=== PATIENT | female | born 1940 | race Hispanic/Latino ===

== ENCOUNTER 2018-03-19 10:12 | Observation (INO) | payer BC ==
[2018-03-19 10:39] VITALS: BMI 21.2
[2018-03-19] MEDS ORDERED: Sodium Chloride 0.9% 1,000 ML IV STA (10:45)
--- NOTE | 2018-03-19 10:52 | ED PDOC ---
Arrival/HPI - General Chief Complaint: Back Pain Time Seen by Provider: 03/19/18 10:33 Historian: Patient - History of Present Illness Narrative History of Present Illness (Text): 03/19/18 10:48 This 78 yo female with pmh kidney stones, presents to this ED c/o left flank pain since 1 am this morning. Patient stated pain feels like a kidney stones. Patient feels nauseous. Patient denies sob, cp, diarrhea, fever, vaginal bleeding, vaginal discharge , urinary symptoms, or dizziness. Time/Duration: Other (10 hours) Quality: Aching Context: Home Past Medical History - Provider Review Nursing Documentation Reviewed: Yes - Travel History If Yes, travel location?: [place] - Infectious Disease Hx of Infectious Diseases: None - Tetanus Immunization Tetanus Immunization: Up to Date - Pulmonary Hx Chronic Obstructive Pulmonary Disease (COPD): Yes - Neurological Hx Neurological Disorder: No - HEENT Hx Cataracts: Yes - Renal Hx Renal Disorder: No - Endocrine/Metabolic Hx Endocrine Disorders: No - Hematological/Oncological Hx Blood Disorders: No - Integumentary Hx Dermatological Disorder: No - Gastrointestinal Hx Gastrointestinal Disorders: No - Genitourinary/Gynecological Hx Genitourinary Disorders: No - Psychiatric Hx Psychophysiologic Disorder: No Hx Substance Use: No - Surgical History Other/Comment: WHIPPLE SURGERY 2013 - Anesthesia Hx Anesthesia: Yes Hx Anesthesia Reactions: No Hx Malignant Hyperthermia: No - Suicidal Assessment Feels Threatened In Home Enviroment: No Family/Social History - Physician Review Nursing Documentation Reviewed: Yes Family/Social History: Other (noncontributory) Smoking Status: Former Smoker Hx Alcohol Use: No Hx Substance Use: No Hx Substance Use Treatment: No Allergies/Home Meds Allergies/Adverse Reactions: Allergies TOMATOES Allergy (Uncoded 03/19/18 20:46) RASH Home Medications: Home Meds Medication Instructions Recorded Confirmed Esomeprazole Magnesium [Nexium] 1 mg PO DAILY 04/09/15 03/19/18 Budesonide/Formoterol Fumarate 10.2 gm INH DAILY 03/19/18 03/19/18 [Symbicort 80-4.5 Mcg Inhaler] Review of Systems - Review of Systems Constitutional: Normal. absent: Fatigue, Weight Change, Fevers Eyes: Normal ENT: Normal Respiratory: Normal Cardiovascular: Normal Gastrointestinal: Abdominal Pain (left flank pain), Nausea. absent: Stool Changes, Constipation, Diarrhea, Vomiting Genitourinary Female: Normal. absent: Dysuria, Frequency, Hematuria, Vaginal Bleeding, Vaginal Discharge Musculoskeletal: Normal Skin: Normal Neurological: Normal Endocrine: Normal Hemo/Lymphatic: Normal Psychiatric: Normal Physical Exam Vital Signs Temp Pulse Resp BP Pulse Ox 03/19/18 15:37 89 18 141/75 96 03/19/18 13:26 99 H 18 145/78 95 03/19/18 12:01 86 18 182/86 H 98 03/19/18 10:12 98.1 F 94 H 18 195/95 H 98 Temperature: Afebrile Blood Pressure: Normal Pulse: Regular Respiratory Rate: Normal Appearance: Positive for: Well-Appearing, Non-Toxic, Comfortable Pain Distress: None Mental Status: Positive for: Alert and Oriented X 3 - Systems Exam Head: Present: Atraumatic, Normocephalic Pupils: Present: PERRL Extroacular Muscles: Present: EOMI Conjunctiva: Present: Normal Mouth: Present: Moist Mucous Membranes Neck: Present: Normal Range of Motion Respiratory/Chest: Present: Clear to Auscultation, Good Air Exchange. No: Respiratory Distress, Accessory Muscle Use Cardiovascular: Present: Regular Rate and Rhythm, Normal S1, S2. No: Murmurs Abdomen: Present: Tenderness (left flank tenderness). No: Distention, Peritoneal Signs, Rebound, Guarding Back: Present: Normal Inspection. No: CVA Tenderness Upper Extremity: Present: Normal Inspection. No: Cyanosis, Edema Lower Extremity: Present: Normal Inspection. No: Edema Neurological: Present: GCS=15, CN II-XII Intact, Speech Normal, Motor Func Grossly Intact, Normal Sensory Function, Normal Cerebellar Funct, Gait Normal, Memory Normal Skin: Present: Warm, Dry, Normal Color. No: Rashes Psychiatric: Present: Alert, Oriented x 3, Normal Insight, Normal Concentration Medical Decision Making ED Course and Treatment: 03/19/18 13:24 Patient stated she has an appointment to see Dr. Campuzano in 1-2 days. Patient said pain has improved. 03/19/18 15:[address] Campuzano regarding renal stone, and intractable abdominal pain. He agrees with plan for observation 03/19/18 15:[address] Munguia regarding patient diagnose of renal stone with hydro, and intractable flank pain. Dr. Munguia is aware I had spoken with Dr. Campuzano, who will see patient tomorrow. Dr. Munguia agrees with plan for observation. Re-evaluation Time: 15:03 Reassessment Condition: Re-examined, Improving,but remains with symptoms - Lab Interpretations Microbiology Results: Microbiology Results 03/19/18 14:00 Blood Blood Culture - Preliminary NO GROWTH AFTER 3 DAYS 03/19/18 13:30 Blood Blood Culture - Preliminary NO GROWTH AFTER 3 DAYS 03/19/18 13:26 Urine Urine Culture - Final No Growth (<1,000 CFU/ML) Lab Results: 03/19/18 11:05 03/19/18 11:05 Lab Results 03/19/18 13:26: Urine Color Yellow, Urine Appearance Turbid, Urine pH 7.5, Ur Specific Parker 1.015, Urine Protein Trace H, Urine Glucose (UA) Negative, Urine Ketones 15 H, Urine Blood Large H, Urine Nitrate Negative, Urine Bilirubin Negative, Urine Urobilinogen 0.2, Ur Leukocyte Esterase Negative, Urine RBC 25 - 30, Urine WBC 0 - 2 03/19/18 11:05: Sodium 141, Potassium 4.0, Chloride 104, Carbon Dioxide 23, Anion Gap 18, BUN 19, Creatinine 0.7, Est GFR ( Amer) > 60, Est GFR (Non- Af Amer) > 60, Random Glucose 132 H, Calcium 9.7, Total Bilirubin 1.0, AST 36, ALT 27, Alkaline Phosphatase 140 H, Lactate Dehydrogenase 611, Total Creatine Kinase 51, Troponin I < 0.01, Total Protein 7.6, Albumin 4.8, Globulin 2.8, Albumin/Globulin Ratio 1.7, Lipase 14 L 03/19/18 11:05: WBC 13.2 H, RBC 4.80, Hgb 14.1, Hct 42.5, MCV 88.5, MCH 29.4, MCHC 33.2, RDW 13.2, Plt Count 240, MPV 9.5, Gran % 89.7 H, Lymph % (Auto) 5.1 L , [place] % (Auto) 4.5, Eos % (Auto) 0.5 L, Baso % (Auto) 0.2, Gran # 11.82 H, Lymph # (Auto) 0.7 L, [place] # (Auto) 0.6, Eos # (Auto) 0.1, Baso # (Auto) 0.02 - RAD Interpretation Narrative RAD Interpretations (Text): 03/19/18 13:13 FINDINGS: LOWER THORAX: Unremarkable. LIVER: 2.8 centimeter right hepatic cyst. . No gross lesion or ductal dilatation. GALLBLADDER AND BILE DUCTS: Cholecystectomy. PANCREAS: Unremarkable. No gross lesion or ductal dilatation. SPLEEN: Unremarkable. ADRENALS: Unremarkable. No mass. KIDNEYS AND URETERS: 15 millimeter nonobstructive calculus in the right renal pelvis. 1 centimeter left lower pole nonobstructive renal calculus as well as additional small left upper pole renal calculi. Moderate left hydronephrosis and hydroureter with periureteral fat infiltration. Suspect 5 millimeter obstructive calculus in the distal left ureter (less likely phlebolith). VASCULATURE: Unremarkable. No aortic aneurysm. BOWEL: Left-sided colonic diverticulosis. No obstruction. No gross mural thickening. APPENDIX: Unremarkable. Normal appendix. PERITONEUM: Unremarkable. No free fluid. No free air. LYMPH NODES: Unremarkable. No enlarged lymph nodes. BLADDER: Unremarkable. REPRODUCTIVE: Unremarkable. BONES: No acute fracture. OTHER FINDINGS: None. IMPRESSION: Moderate left hydronephrosis and hydroureter with periureteral fat infiltration. Suspect 5 millimeter obstructive calculus in the distal left ureter (less likely phlebolith). Bilateral nephrolithiasis. 03/19/18 14:37 CXR: NAD Radiology Orders: 03/19/18 10:46 CHEST PORTABLE [RAD] Stat 03/19/18 10:53 ABDOMEN & PELVIS [ABD & PELVIS W/O PO OR IV CONT] [CT] Stat - EKG Interpretation Interpreted by ED Physician: Yes (NSR @ [address] changes) Type: 12 lead EKG Comparison: No previous EKG avail. - Medication Orders Current Medication Orders: Discontinued Medications Albuterol/Ipratropium (Duoneb 3 Mg/0.5 Mg (3 Ml) Ud) 3 ml IH [id number] PRN PRN Reason: Shortness of Breath Docusate Sodium (Colace) 100 mg PO DAILY RICARDO Last Admin: 03/21/18 10:42 Dose: 100 mg Last Bowel Movement Document 03/21/18 10:42 DSZ (Rec: 03/21/18 10:42 DSZ [id number]) Last Bowel Movement Last Bowel Movement 03/19/18 Enoxaparin Sodium (Lovenox) 40 mg SC DAILY RICARDO PRN Reason: Protocol Last Admin: 03/21/18 10:41 Dose: 40 mg Subcutaneous Administrations Document 03/21/18 10:41 DSZ (Rec: 03/21/18 10:41 DSZ [id number]) Injection Site MAR Injection Site Right Abdomen Charges for Administration # of Subcutaneous Administrations 1 Hydromorphone HCl (Dilaudid) 0.5 mg IVP STAT STA Stop: 03/19/18 14:25 Last Admin: 03/19/18 14:37 Dose: 0.5 mg MAR Pain Assessment Document 03/19/18 14:37 LA (Rec: 03/19/18 14:37 LA [id number]) Pain Reassessment Is this a pain reassessment? No Sleep Is patient sleeping during reassessment? No Presence of Pain Presence of Pain Yes Pain Scale Used Pain Scale Used Numeric Location Pain Location Body Site Abdomen Description Intensity of Pain at present 6 Pain Behavior Guarding IVP Administration Document 03/19/18 14:37 LA (Rec: 03/19/18 14:37 LA [id number]) Charges for Administration # of IVP Administrations 1 Re-Assess: MAR Pain Assessment Document 03/19/18 15:37 LA (Rec: 03/19/18 16:55 LA [id number]) Pain Reassessment Is this a pain reassessment? Yes Sleep Is patient sleeping during reassessment? No Presence of Pain Presence of Pain Yes Pain Scale Used Pain Scale Used Numeric Location Pain Location Body Site Abdomen Description Intensity of Pain at present 3 Hydromorphone HCl (Dilaudid) 0.5 mg IVP Q6H PRN PRN Reason: Pain, severe (8-10) Stop: 03/20/18 09:00 Last Admin: 03/19/18 19:59 Dose: 0.5 mg MAR Pain Assessment Document 03/19/18 19:59 MB (Rec: 03/19/18 20:00 MB [id number]) Pain Reassessment Is this a pain reassessment? No Presence of Pain Presence of Pain Yes Pain Scale Used Pain Scale Used Numeric Location Left, Right or Bilateral Right Pain Location Body Site Abdomen Back Description Description Intermittent IVP Administration Document 03/19/18 19:59 MB (Rec: 03/19/18 20:00 MB [id number]) Charges for Administration # of IVP Administrations 1 Re-Assess: MAR Pain Assessment Document 03/19/18 20:59 MB (Rec: 03/20/18 00:32 MB [id number]) Pain Reassessment Is this a pain reassessment? Yes Sleep Is patient sleeping during reassessment? Yes Hydromorphone HCl (Dilaudid) 0.5 mg IVP Q15M PRN PRN Reason: Pain, moderate (4-7) Stop: 03/20/18 16:46 Sodium Chloride (Sodium Chloride 0.9%) 1,000 mls @ 999 mls/hr IV .Q1H1M STA Stop: 03/19/18 11:45 Last Admin: 03/19/18 11:13 Dose: 999 mls/hr eMAR Start Stop Document 03/19/18 11:13 LA (Rec: 03/19/18 11:13 LA [id number]) Intravenous Solution Start Date 03/19/18 Start Time 11:13 End Date 03/19/18 End time 12:14 Total Infusion Time 61 Ceftriaxone Sodium (Rocephin 1 Gram Ivpb) 1 gm in 100 mls @ 200 mls/hr IVPB STAT STA PRN Reason: Protocol Stop: 03/19/18 14:55 Last Admin: 03/19/18 14:37 Dose: 200 mls/hr eMAR Start Stop Document 03/19/18 14:37 LA (Rec: 03/19/18 14:37 LA [id number]) Intravenous Solution Start Date 03/19/18 Start Time 14:37 End Date 03/19/18 End time 15:07 Total Infusion Time 30 Sodium Chloride (Sodium Chloride 0.9%) 1,000 mls @ 75 mls/hr IV .[id number] [facility] Last Admin: 03/20/18 09:28 Dose: 75 mls/hr eMAR Start Stop Document 03/20/18 09:28 OMAR (Rec: 03/20/18 09:28 OMAR [id number]) Intravenous Solution Start Date 03/20/18 Start Time 09:28 Ketorolac Tromethamine (Toradol) 15 mg IVP STAT STA Stop: 03/19/18 10:46 Last Admin: 03/19/18 11:13 Dose: 15 mg MAR Pain Assessment Document 03/19/18 11:13 LA (Rec: 03/19/18 11:14 LA [id number]) Pain Reassessment Is this a pain reassessment? No Sleep Is patient sleeping during reassessment? No Presence of Pain Presence of Pain Yes Pain Scale Used Pain Scale Used Numeric Location Left, Right or Bilateral Left Pain Location Body Site Back Description Description Constant Intensity of Pain at present 8 Pain Behavior Guarding IVP Administration Document 03/19/18 11:13 LA (Rec: 03/19/18 11:14 LA [id number]) Charges for Administration # of IVP Administrations 1 Re-Assess: [facility] Pain Assessment Document 03/19/18 12:13 LA (Rec: 03/19/18 14:38 LA [id number]) Pain Reassessment Is this a pain reassessment? Yes Sleep Is patient sleeping during reassessment? Yes Morphine Sulfate (Morphine) 2 mg IVP Q6H PRN PRN Reason: Pain, severe (8-10) Non-Formulary Medication (Budesonide/Formoterol Fumarate [Symbicort 80-4.5 Mcg Inhaler]) 10.2 gm INH DAILY [facility] Last Admin: 03/21/18 11:49 Dose: Ondansetron HCl (Zofran Inj) 4 mg IVP STAT STA Stop: 03/19/18 10:47 Last Admin: 03/19/18 11:13 Dose: 4 mg IVP Administration Document 03/19/18 11:13 LA (Rec: 03/19/18 11:13 LA [id number]) Charges for Administration # of IVP Administrations 1 Ondansetron HCl (Zofran Inj) 4 mg IVP STAT STA Stop: 03/19/18 14:25 Last Admin: 03/19/18 14:36 Dose: 4 mg IVP Administration Document 03/19/18 14:36 LA (Rec: 03/19/18 14:37 LA [id number]) Charges for Administration # of IVP Administrations 1 Ondansetron HCl (Zofran Inj) 4 mg IVP Q4H PRN PRN Reason: Nausea/Vomiting Ondansetron HCl (Zofran Inj) 4 mg IVP ONCE PRN PRN Reason: Nausea/Vomiting Pantoprazole Sodium (Protonix Inj) 40 mg IVP DAILY [facility] Last Admin: 03/21/18 10:42 Dose: 40 mg IVP Administration Document 03/21/18 10:42 DSZ (Rec: 03/21/18 10:42 DSZ [id number]) Charges for Administration # of IVP Administrations 1 Pneumococcal Polyvalent Vaccine (Pneumovax 23 Vaccine) 0.5 ml IM .ONCE ONE Stop: 03/19/18 22:19 Last Admin: 03/20/18 00:36 Dose: Immunization Registry Document 03/20/18 00:36 MB (Rec: 03/20/18 00:36 MB [id number]) Immunization Registry Consent Date 03/19/18 Potassium Chloride (K-Dur 20 Meq Er Tab) 40 meq PO ONCE ONE Stop: 03/21/18 08:05 Last Admin: 03/21/18 08:36 Dose: 40 meq Tamsulosin HCl (Flomax) 0.4 mg PO STAT STA Stop: 03/19/18 15:03 Last Admin: 03/19/18 16:57 Dose: 0.4 mg Tamsulosin HCl (Flomax) 0.4 mg PO DAILY [facility] Last Admin: 03/19/18 18:34 Dose: Disposition/Present on Arrival - Present on Arrival Any Indicators Present on Arrival: No History of DVT/PE: No History of Uncontrolled Diabetes: No Urinary Catheter: No History of Decub. Ulcer: No History Surgical Site Infection Following: None - Disposition Have Diagnosis and Disposition been Completed?: Yes Diagnosis: Ureterolithiasis, Intractable abdominal pain Disposition: HOSPITALIZED Disposition Time: 15:36 Patient Plan: Observation Condition: GOOD
[2018-03-19 11:17] LABS: BASO # 0.02 K/mm3 (0.0-2.0); BASO % 0.2 % (0.0-3.0); EOS # 0.1 (0.0-0.7); EOS % 0.5 % (1.5-5.0); GRAN # 11.82 (1.4-6.5); GRAN % 89.7 % (50.0-68.0); HEMOGLOBIN 14.1 g/dL (12.0-16.0); LYMPH # 0.7 (1.2-3.4); LYMPH % 5.1 % (22.0-35.0); MEAN CELL VOLUME 88.5 fl (80.0-105.0); MEAN CORPUSCULAR HEMOGLOBIN 29.4 pg (25.0-35.0); MEAN CORPUSCULAR HGB CONC 33.2 g/dl (31.0-37.0); MEAN PLATELET VOLUME 9.5 fl (7.0-11.0); MONO # 0.6 (0.1-0.6); MONO % 4.5 % (1.0-6.0); RBC 4.8 10^6/uL (3.5-6.1); RED CELL DISTRIBUTION WIDTH 13.2 % (11.5-14.5); WHITE BLOOD COUNT 13.2 10^3/ul (4.5-11.0)
[2018-03-19 11:36] LABS: ALB/GLOB RATIO 1.7 (1.1-1.8); ALBUMIN 4.8 g/dL (3.0-4.8); CALCIUM 9.7 mg/dL (8.4-10.5); GFR AFRICAN-AMERICAN > 60; GFR NON-AFRICAN AMERICAN > 60; LIPASE 14 U/L (23-300)
[2018-03-19 11:39] LABS: ALT/SGPT 27 U/L (7-56); AST/SGOT 36 U/L (14-36); BLOOD UREA NITROGEN 19 mg/dL (7-21)
[2018-03-19 11:45] LABS: TROPONIN I < 0.01 ng/mL
--- NOTE | 2018-03-19 11:54 | CT ---
PROCEDURE: CT Abdomen and Pelvis without intravenous contrast HISTORY: left flank pain COMPARISON: 05/05/13. TECHNIQUE: Technique. Contrast dose: Radiation dose: Total exam DLP = 256 mGy-cm. This CT exam was performed using one or more of the following dose reduction techniques: Automated exposure control, adjustment of the mA and/or kV according to patient size, and/or use of iterative reconstruction technique. FINDINGS: LOWER THORAX: Unremarkable. LIVER: 2.8 centimeter right hepatic cyst. . No gross lesion or ductal dilatation. GALLBLADDER AND BILE DUCTS: Cholecystectomy. PANCREAS: Unremarkable. No gross lesion or ductal dilatation. SPLEEN: Unremarkable. ADRENALS: Unremarkable. No mass. KIDNEYS AND URETERS: 15 millimeter nonobstructive calculus in the right renal pelvis. 1 centimeter left lower pole nonobstructive renal calculus as well as additional small left upper pole renal calculi. Moderate left hydronephrosis and hydroureter with periureteral fat infiltration. Suspect 5 millimeter obstructive calculus in the distal left ureter (less likely phlebolith). VASCULATURE: Unremarkable. No aortic aneurysm. BOWEL: Left-sided colonic diverticulosis. No obstruction. No gross mural thickening. APPENDIX: Unremarkable. Normal appendix. PERITONEUM: Unremarkable. No free fluid. No free air. LYMPH NODES: Unremarkable. No enlarged lymph nodes. BLADDER: Unremarkable. REPRODUCTIVE: Unremarkable. BONES: No acute fracture. OTHER FINDINGS: None. IMPRESSION: Moderate left hydronephrosis and hydroureter with periureteral fat infiltration. Suspect 5 millimeter obstructive calculus in the distal left ureter (less likely phlebolith). Bilateral nephrolithiasis.
--- NOTE | 2018-03-19 12:10 | CARD ---
APPROVED REPORT EKG Measurement Heart [id number] <Conclusion> Normal sinus rhythm Low voltage QRS Cannot rule out Anterior infarct, age undetermined Abnormal ECG
--- NOTE | 2018-03-19 12:12 | RAD ---
HISTORY: pleuritic CP COMPARISON: 07/21/2016 FINDINGS: LUNGS: No active pulmonary disease. PLEURA: No significant pleural effusion identified, no pneumothorax apparent. CARDIOVASCULAR: Normal. OSSEOUS STRUCTURES: No significant abnormalities. VISUALIZED UPPER ABDOMEN: Normal. OTHER FINDINGS: None. IMPRESSION: No active disease.
[2018-03-19 13:31] LABS: PH,URINE 7.5 (4.7-8.0); URINE BILIRUBIN NEGATIVE (NEGATIVE); URINE BLOOD LARGE (NEGATIVE); URINE GLUCOSE (UA) NEGATIVE (NEGATIVE); URINE LEUKOCYTE ESTERASE NEGATIVE Leu/uL (NEGATIVE); URINE PROTEIN TRACE mg/dL (<30 mg/dL); URINE UROBILINOGEN 0.2 E.U./dL (<1 E.U./dL)
[2018-03-19 13:37] LABS: URINE APPEARANCE TURBID (CLEAR); URINE COLOR YELLOW (YELLOW)
[2018-03-19 13:52] LABS: URINE RBC 25 - 30 /hpf (0-2); URINE WBC 0 - 2 /hpf (0-6)
[2018-03-19] MEDS ORDERED: HYDROmorphone 0.5 mg/0.5 ml ISec IVP STA (14:24)
[2018-03-19] MEDS ORDERED: cefTRIAXone 1 gm 1 GM/100 ML BAG IVPB STA (14:26)
[2018-03-19] MEDS ORDERED: HYDROmorphone 0.5 mg/0.5 ml ISec IVP PRN (16:57)
[2018-03-19] MEDS ORDERED: Albuterol-Ipratrop 3 mg / 0.5 (3 ml) UD IH PRN (17:46)
[2018-03-19] MEDS ORDERED: Morphine 2 mg/ml ISec IVP PRN (17:49)
--- NOTE | 2018-03-19 21:08 | CP.PCM.HP ---
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 Patient indicated she had been experiencing left sided flank pain for the past week with progression of her symptoms over the past day or two. She indicates that this AM around 1 AM she began to experience vomiting and nausea. She also reported hives and chills. She tried to take Tylenol for her pain without resolution of symptoms. Patient indicated that she was previously worked up for this discomfort with renal ultrasound with her PMD Dr. Knight. Patient was instructed to follow up with Urologist Dr. Campuzano. Patient indicates she had appointment with him next week. Patient also indicated headaches ,dry mouth associated with symbicort. Patient denied chest pain, shortness of breath, abdominal pain, dysuria, hematuria, weakness, numbness, focal deficit. 12 point ROS benign other than mentioned in HPI. In ED patient had abdomen and pelvis CT showing 5 mm obstructive calculi distal left ureter, 15 mm non obstructing calculus right renal pelvis, 10 mm non obstructive calculus left lower pole, small left upper pole renal calculi, moderate left hydronephrosis and hydroureter with periureteral fat infiltration , elevated WBC of 13.2, afebrile. 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 Vogel. Present on Admission - Present on Admission Any Indicators Present on Admission: No Review of Systems - Review of Systems All systems: reviewed and no additional remarkable complaints except (as mentioned in hpi) Past Patient History - Infectious Disease Hx of Infectious Diseases: None - Tetanus Immunizations Tetanus Immunization: Up to Date - Past Social History Smoking Status: Former Smoker - PULMONARY Hx Chronic Obstructive Pulmonary Disease (COPD): Yes - NEUROLOGICAL Hx Neurological Disorder: No - HEENT Hx Cataracts: Yes - RENAL Hx Chronic Kidney Disease: No - ENDOCRINE/METABOLIC Hx Endocrine Disorders: No - HEMATOLOGICAL/ONCOLOGICAL Hx Blood Disorders: No - INTEGUMENTARY Hx Dermatological Problems: No - GASTROINTESTINAL Hx Gastrointestinal Disorders: No - GENITOURINARY/GYNECOLOGICAL Hx Genitourinary Disorders: No - PSYCHIATRIC Hx Psychophysiologic Disorder: No Hx Substance Use: No - SURGICAL HISTORY Other/Comment: WHIPPLE SURGERY 2013 - ANESTHESIA Hx Anesthesia: Yes Hx Anesthesia Reactions: No Hx Malignant Hyperthermia: No Meds Allergies/Adverse Reactions: Allergies Allergy/AdvReac Type Severity Reaction Status Date / Time TOMATOES Allergy RASH Uncoded 03/19/18 20:46 Physical Exam - Constitutional Appears: Non-toxic, Older Than Stated Age, Cachectic - Head Exam Head Exam: ATRAUMATIC, NORMOCEPHALIC Additional comments: temporal bossing, sunken eyes - Eye Exam Eye Exam: EOMI, PERRL - ENT Exam ENT Exam: Mucous Membranes Dry - Neck Exam Neck exam: Positive for: Full Rom. Negative for: Tenderness - Respiratory Exam Respiratory Exam: Clear to Auscultation Bilateral, NORMAL BREATHING PATTERN. absent: Rales, Rhonchi, Wheezes - Cardiovascular Exam Cardiovascular Exam: REGULAR RHYTHM, +S1, +S2 - GI/Abdominal Exam GI & Abdominal Exam: Normal Bowel Sounds, Soft. absent: Tenderness - Extremities Exam Extremities exam: Positive for: normal capillary refill, pedal pulses present. Negative for: calf tenderness - Back Exam Back exam: CVA tenderness (L) - Neurological Exam Neurological exam: Alert, CN II-XII Intact, Normal Gait, Oriented x3, Reflexes Normal - Psychiatric Exam Psychiatric exam: Normal Affect, Normal Mood - Skin Skin Exam: Dry, Warm Results - Vital Signs Recent Vital Signs: Last Vital Signs Temp 98.4 F 03/19/18 17:15 Pulse 86 03/19/18 17:15 Resp 18 03/19/18 17:15 BP 151/86 H 03/19/18 17:15 Pulse Ox 95 03/19/18 17:15 - Labs Result Diagrams: 03/19/18 11:05 03/19/18 11:05 Assessment & Plan - Assessment and Plan (Free Text) Assessment: 1 year old female with past medical history of COPD, previous episode of nephrolithiasis, and 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 Urology consulted. Plan: Nephrolithiasis - Abdomen pelvis CT: 5 mm obstructive calculi distal left ureter, 15 mm non obstructing calculus right renal pelvis, 10 mm non obstructive calculus left lower pole, small left upper pole renal calculi, moderate left hydronephrosis and hydroureter with periureteral fat infiltration - elevated WBC of 13.2, afebrile - rocephin in ED, continue - Diet liquids - IVF 75ml NS - Flomax - Morphine 2mg Q6H PRN - Strain urine - Urology consult - Zofran prn DVT/GI ppx - Lovenox - Protonix Case and plan discussed with attending - Date & Time Date: 03/19/18 Time: 21:08 <Maxwell Munguia - Last Filed: 03/20/18 07:48> Results - Vital Signs Recent Vital Signs: Last Vital Signs Temp 98.4 F 03/19/18 23:22 Pulse 88 03/19/18 23:22 Resp 18 03/19/18 23:22 BP 136/59 L 03/19/18 23:22 Pulse Ox 98 03/19/18 23:22 - Labs Result Diagrams: 03/20/18 07:03 03/20/18 07:03 Labs: Laboratory Results - last 24 hr 03/20/18 03/20/18 07:03 07:03 WBC 9.0 D RBC 4.13 Hgb 12.0 D Hct 37.0 MCV 89.6 MCH 29.1 MCHC 32.4 RDW 13.6 Plt Count 210 MPV 9.5 Gran % 78.4 H Lymph % (Auto) 10.8 L [place] % (Auto) 8.7 H Eos % (Auto) 2.0 Baso % (Auto) 0.1 Gran # 7.03 H Lymph # (Auto) 1.0 L [place] # (Auto) 0.8 H Eos # (Auto) 0.2 Baso # (Auto) 0.01 Sodium 142 Potassium 3.7 Chloride 107 Carbon Dioxide 25 Anion Gap 13 BUN 15 Creatinine 0.7 Est GFR ( Amer) > 60 Est GFR (Non-Af Amer) > 60 Random Glucose 102 Calcium 8.5 Total Bilirubin 0.8 AST 31 ALT 25 Alkaline Phosphatase 101 Total Protein 5.7 L Albumin 3.4 Globulin 2.3 Albumin/Globulin Ratio 1.5 Attending/Attestation - Attestation I have personally seen and examined this patient.: Yes I have fully participated in the care of the patient.: Yes I have reviewed all pertinent clinical information: Yes Notes (Text): 03/19/18 78 year old female with past medical history of COPD, nephrolithias, and pancreatic cysts s/p Whipple procedure who presents with nausea, vomiting and left flank pain. She was found to have nephrolithiasis with 5 mm obstructive calculi distal left ureter, 15 mm nonobstructing calculus right renal pelvis and 10 mm nonobstructive calculus left lower pole with moderate left hydronephrosis and hydroureter with periureteral fat infiltration. Urology evaluation is requested. Continue with analgesics and antiemetics as needed. IVF and flomax is ordered. Strain for urine. Maxwell Munguia MD Hospitalist.
[2018-03-19] MEDS ORDERED: Pneumococcal 23-Valent Vaccine IM ONE (22:18)
[2018-03-20] MEDS: Sodium Chloride 0.9% 1,000 ML IV SCH ×2 (00:37→09:28)
[2018-03-20 07:15] LABS: BASO # 0.01 K/mm3 (0.0-2.0); BASO % 0.1 % (0.0-3.0); EOS # 0.2 (0.0-0.7); GRAN # 7.03 (1.4-6.5); GRAN % 78.4 % (50.0-68.0); LYMPH % 10.8 % (22.0-35.0); MEAN CELL VOLUME 89.6 fl (80.0-105.0); MEAN CORPUSCULAR HEMOGLOBIN 29.1 pg (25.0-35.0); MEAN CORPUSCULAR HGB CONC 32.4 g/dl (31.0-37.0); MEAN PLATELET VOLUME 9.5 fl (7.0-11.0); MONO # 0.8 (0.1-0.6); MONO % 8.7 % (1.0-6.0); RBC 4.13 10^6/uL (3.5-6.1); RED CELL DISTRIBUTION WIDTH 13.6 % (11.5-14.5)
[2018-03-20 07:32] LABS: ALB/GLOB RATIO 1.5 (1.1-1.8); ALBUMIN 3.4 g/dL (3.0-4.8); ALT/SGPT 25 U/L (7-56); AST/SGOT 31 U/L (14-36); BLOOD UREA NITROGEN 15 mg/dL (7-21); CALCIUM 8.5 mg/dL (8.4-10.5); GFR AFRICAN-AMERICAN > 60; GFR NON-AFRICAN AMERICAN > 60
[2018-03-20] MEDS: Enoxaparin 40 mg Syringe SC SCH (09:28)
[2018-03-20] MEDS ORDERED: BUDESONIDE INH SCH (10:00)
[2018-03-20] MEDS ORDERED: [UNRECOGNIZED DRUG - OTHER] INH SCH (10:00)
[2018-03-20] MEDS ORDERED: FORMOTEROL FUMARATE INH SCH (10:00)
--- NOTE | 2018-03-20 10:22 | CP.PCM.PN ---
<Latoya Salomon - Last Filed: 03/20/18 10:28> Subjective - Date & Time of Evaluation Date of Evaluation: 03/20/18 Time of Evaluation: 10:20 - Subjective Subjective: Internal Medicine Progress Note - Hospitalist Service Patient seen and examined at bedside. Per nursing no acute events overnight. Patient states that left flank pain has improved, has not passed stone yet. She is NPO for procedure this afternoon. Denies headaches, dizziness, cp, palpitations, N/V, urinary symptoms, changes in bowel habits. Objective - Vital Signs/Intake and Output Vital Signs (last 24 hours): Temp Pulse Resp BP Pulse Ox 98 F 80 20 124/81 97 03/20/18 06:00 03/20/18 06:00 03/20/18 06:00 03/20/18 06:00 03/20/18 06:00 Intake and Output: 03/20/18 03/20/18 06:59 18:59 Intake Total 600 Balance 600 - Medications Medications: Current Medications Albuterol/Ipratropium (Duoneb 3 Mg/0.5 Mg (3 Ml) Ud) 3 ml IH [id number] PRN PRN Reason: Shortness of Breath Docusate Sodium (Colace) 100 mg PO DAILY [facility] Enoxaparin Sodium (Lovenox) 40 mg SC DAILY [facility] PRN Reason: Protocol Last Admin: 03/20/18 09:28 Dose: Not Given Sodium Chloride (Sodium Chloride 0.9%) 1,000 mls @ 75 mls/hr IV .[id number] [facility] Last Admin: 03/20/18 09:28 Dose: 75 mls/hr Morphine Sulfate (Morphine) 2 mg IVP Q6H PRN PRN Reason: Pain, severe (8-10) Non-Formulary Medication (Budesonide/Formoterol Fumarate [Symbicort 80-4.5 Mcg Inhaler]) 10.2 gm INH DAILY [facility] Ondansetron HCl (Zofran Inj) 4 mg IVP Q4H PRN PRN Reason: Nausea/Vomiting Pantoprazole Sodium (Protonix Inj) 40 mg IVP DAILY [facility] Last Admin: 03/20/18 09:27 Dose: 40 mg Tamsulosin HCl (Flomax) 0.4 mg PO DAILY [facility] Last Admin: 03/19/18 18:34 Dose: Not Given - Labs Labs: 03/20/18 07:03 03/20/18 07:03 - Constitutional Appears: Non-toxic, No Acute Distress - Head Exam Head Exam: ATRAUMATIC, NORMAL INSPECTION, NORMOCEPHALIC - Eye Exam Eye Exam: EOMI, Normal appearance Pupil Exam: NORMAL ACCOMODATION - ENT Exam ENT Exam: Mucous Membranes Moist - Neck Exam Neck Exam: Full ROM - Respiratory Exam Respiratory Exam: Clear to Ausculation Bilateral, NORMAL BREATHING PATTERN. absent: Rales, Rhonchi, Wheezes - Cardiovascular Exam Cardiovascular Exam: REGULAR RHYTHM, +S1, +S2 - GI/Abdominal Exam GI & Abdominal Exam: Soft, Normal Bowel Sounds. absent: Guarding, Rigid, Tenderness - Rectal Exam Rectal Exam: Deferred - Extremities Exam Extremities Exam: Full ROM, Normal Inspection. 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 Urology consulted. Nephrolithiasis -Stable, afebrile -Leukocytosis resolved -Recieved Rocephin 1 gm in the ED -CT Abdomen pelvis showed 5 mm obstructive calculi distal left ureter, 15 mm non obstructing calculus right renal pelvis, 10 mm non obstructive calculus left lower pole, small left upper pole renal calculi, moderate left hydronephrosis and hydroureter with periureteral fat infiltration -Diet NPO for procedure today -Continue IVF 75ml NS -Continue Flomax 0.4mg PO daily -Morphine 2mg Q6H PRN pain -Urine cultures showing no growth, blood cultures pending -Strain urine for calculi -Urology consult, help appreciated History of COPD -Stable at this time -Symbicort daily -Duonebs prn shortness of breath DVT/GI ppx -Lovenox (held for procedure) -Protonix 40mg IV daily Patient follows with PMD, Dr Mutterperl and will follow up with him upon discharge. Plan discussed with Dr Munguia. Latoya Salomon DO PGY-1 <Maxwell Munguia - Last Filed: 03/20/18 18:12> Objective - Vital Signs/Intake and Output Vital Signs (last 24 hours): Temp Pulse Resp BP Pulse Ox 97.4 F L 93 H 21 180/90 H 98 03/20/18 15:55 03/20/18 15:55 03/20/18 15:55 03/20/18 15:55 03/20/18 15:55 Intake and Output: 03/20/18 03/20/18 06:59 18:59 Intake Total 600 0 Balance 600 0 - Medications Medications: Current Medications Albuterol/Ipratropium (Duoneb 3 Mg/0.5 Mg (3 Ml) Ud) 3 ml IH [id number] PRN PRN Reason: Shortness of Breath Docusate Sodium (Colace) 100 mg PO DAILY [facility] Enoxaparin Sodium (Lovenox) 40 mg SC DAILY [facility] PRN Reason: Protocol Last Admin: 03/20/18 09:28 Dose: Not Given Sodium Chloride (Sodium Chloride 0.9%) 1,000 mls @ 75 mls/hr IV .[id number] [facility] Last Admin: 03/20/18 09:28 Dose: 75 mls/hr Morphine Sulfate (Morphine) 2 mg IVP Q6H PRN PRN Reason: Pain, severe (8-10) Non-Formulary Medication (Budesonide/Formoterol Fumarate [Symbicort 80-4.5 Mcg Inhaler]) 10.2 gm INH DAILY [facility] Ondansetron HCl (Zofran Inj) 4 mg IVP Q4H PRN PRN Reason: Nausea/Vomiting Ondansetron HCl (Zofran Inj) 4 mg IVP ONCE PRN PRN Reason: Nausea/Vomiting Pantoprazole Sodium (Protonix Inj) 40 mg IVP DAILY [facility] Last Admin: 03/20/18 09:27 Dose: 40 mg Tamsulosin HCl (Flomax) 0.4 mg PO DAILY [facility] Last Admin: 03/19/18 18:34 Dose: Not Given - Labs Labs: 03/20/18 07:03 03/20/18 07:03 Attending/Attestation - Attestation I have personally seen and examined this patient.: Yes I have fully participated in the care of the patient.: Yes I have reviewed all pertinent clinical information, including history, physical exam and plan: Yes Notes (Text): 03/20/18 18:11 78 year old female with past medical history of COPD, nephrolithias, and pancreatic cysts s/p Whipple procedure who presented with nausea, vomiting and left flank pain. She was found to have nephrolithiasis with 5 mm obstructive calculi distal left ureter, 15 mm nonobstructing calculus right renal pelvis and 10 mm nonobstructive calculus left lower pole with moderate left hydronephrosis and hydroureter with periureteral fat infiltration. Her symptoms have improved this morning. Leukocytosis has improved as well. She is on IVF and flomax. Plan is for cystoscopy this afternoon with urology. Maxwell Munguia MD Hospitalist.
[2018-03-20] MEDS ORDERED: cefTRIAXone (Rocephin) 1 gm Inj ONE (13:18)
[2018-03-20] MEDS ORDERED: Lidocaine 1% Inj (20ml) ONE (13:19)
[2018-03-20] MEDS ORDERED: Lidocaine 2% Jelly (Uro-Jet) ONE (13:19)
[2018-03-20] MEDS ORDERED: Iohexol 240 (50 ml) ONE (13:19)
[2018-03-20] MEDS ORDERED: Propofol 10 mg/ml Inj (20 ML) ONE (13:19)
[2018-03-20] MEDS ORDERED: Iohexol 240 MG/100 ML SOL IJ ONE (13:50)
[2018-03-20] MEDS ORDERED: Bacitracin 500 Units/gm Oint Foilpak UD ONE (14:29)
[2018-03-20] MEDS ORDERED: HYDROmorphone 0.5 mg/0.5 ml ISec IVP PRN (14:46)
--- NOTE | 2018-03-20 15:32 | RAD ---
PROCEDURE: Fluoroscopy up to 1 hour HISTORY: RETROGRADE / LASER LITHOTRIPSY / STENT INSERTION (LEFT) COMPARISON: TECHNIQUE: 142.7 seconds of fluoro time. 14.61 mGy cumulative dose. 18 images were submitted FINDINGS: The study shows opacification of the left-sided ureter and collecting system with passage of a wire and instrument. There is placement of a ureteral stent IMPRESSION: As above
[2018-03-20 23:01] VITALS: RESP 18
[2018-03-21 07:27] LABS: BASO # 0.01 K/mm3 (0.0-2.0); BASO % 0.1 % (0.0-3.0); EOS # 0.2 (0.0-0.7); EOS % 3.3 % (1.5-5.0); GRAN # 5.13 (1.4-6.5); HEMOGLOBIN 12.4 g/dL (12.0-16.0); LYMPH # 1.2 (1.2-3.4); LYMPH % 15.8 % (22.0-35.0); MEAN CELL VOLUME 88.7 fl (80.0-105.0); MEAN CORPUSCULAR HEMOGLOBIN 29.3 pg (25.0-35.0); MEAN CORPUSCULAR HGB CONC 33.1 g/dl (31.0-37.0); MEAN PLATELET VOLUME 9.4 fl (7.0-11.0); MONO # 0.8 (0.1-0.6); MONO % 10.8 % (1.0-6.0); RBC 4.23 10^6/uL (3.5-6.1); RED CELL DISTRIBUTION WIDTH 13.4 % (11.5-14.5); WHITE BLOOD COUNT 7.3 10^3/ul (4.5-11.0)
--- NOTE | 2018-03-21 07:34 | CP.PCM.DIS ---
<Latoya Salomon - Last Filed: 03/21/18 12:24> Provider - Provider Date of Admission: 03/19/18 15:33 Attending physician: Maxwell Munguia MD Consults: Urology: Dr Campuzano Time Spent in preparation of Discharge (in minutes): 31 Hospital Course - Lab Results Lab Results: Most Recent Lab Values WBC 7.3 10^3/ul (4.5-11.0) 03/21/18 06:45 RBC 4.23 10^6/uL (3.5-6.1) 03/21/18 06:45 Hgb 12.4 g/dL (12.0-16.0) 03/21/18 06:45 Hct 37.5 % (36.0-48.0) 03/21/18 06:45 MCV 88.7 fl (80.0-105.0) 03/21/18 06:45 MCH 29.3 pg (25.0-35.0) 03/21/18 06:45 MCHC 33.1 g/dl (31.0-37.0) 03/21/18 06:45 RDW 13.4 % (11.5-14.5) 03/21/18 06:45 Plt Count 210 10^3/uL (120.0-450.0) 03/21/18 06:45 MPV 9.4 fl (7.0-11.0) 03/21/18 06:45 Gran % 70.0 % (50.0-68.0) H 03/21/18 06:45 Lymph % (Auto) 15.8 % (22.0-35.0) L 03/21/18 06:45 [place] % (Auto) 10.8 % (1.0-6.0) H 03/21/18 06:45 Eos % (Auto) 3.3 % (1.5-5.0) 03/21/18 06:45 Baso % (Auto) 0.1 % (0.0-3.0) 03/21/18 06:45 Gran # 5.13 (1.4-6.5) 03/21/18 06:45 Lymph # (Auto) 1.2 (1.2-3.4) 03/21/18 06:45 [place] # (Auto) 0.8 (0.1-0.6) H 03/21/18 06:45 Eos # (Auto) 0.2 (0.0-0.7) 03/21/18 06:45 Baso # (Auto) 0.01 K/mm3 (0.0-2.0) 03/21/18 06:45 Sodium 142 mmol/L (132-148) 03/20/18 07:03 Potassium 3.7 mmol/L (3.6-5.0) 03/20/18 07:03 Chloride 107 mmol/L (98-107) 03/20/18 07:03 Carbon Dioxide 25 mmol/L (21-33) 03/20/18 07:03 Anion Gap 13 (10-20) 03/20/18 07:03 BUN 15 mg/dL (7-21) 03/20/18 07:03 Creatinine 0.7 mg/dl (0.7-1.2) 03/20/18 07:03 Est GFR ( Amer) > 60 03/20/18 07:03 Est GFR (Non-Af Amer) > 60 03/20/18 07:03 Random Glucose 102 mg/dL (70-110) 03/20/18 07:03 Calcium 8.5 mg/dL (8.4-10.5) 03/20/18 07:03 Total Bilirubin 0.8 mg/dL (0.2-1.3) 03/20/18 07:03 AST 31 U/L (14-36) 03/20/18 07:03 ALT 25 U/L (7-56) 03/20/18 07:03 Alkaline Phosphatase 101 U/L (38-126) 03/20/18 07:03 Lactate Dehydrogenase 611 U/L (333-699) 03/19/18 11:05 Total Creatine Kinase 51 U/L (35-230) 03/19/18 11:05 Troponin I < 0.01 ng/mL 03/19/18 11:05 Total Protein 5.7 g/dL (5.8-8.3) L 03/20/18 07:03 Albumin 3.4 g/dL (3.0-4.8) 03/20/18 07:03 Globulin 2.3 gm/dL 03/20/18 07:03 Albumin/Globulin Ratio 1.5 (1.1-1.8) 03/20/18 07:03 Lipase 14 U/L (23-300) L 03/19/18 11:05 Urine Color Yellow (YELLOW) 03/19/18 13:26 Urine Appearance Turbid (CLEAR) 03/19/18 13:26 Urine pH 7.5 (4.7-8.0) 03/19/18 13:26 Ur Specific [place] 1.015 (1.005-1.035) 03/19/18 13:26 Urine Protein Trace mg/dL (<30 mg/dL) H 03/19/18 13:26 Urine Glucose (UA) Negative mg/dL (NEGATIVE) 03/19/18 13:26 Urine Ketones 15 mg/dL (NEGATIVE) H 03/19/18 13:26 Urine Blood Large (NEGATIVE) H 03/19/18 13:26 Urine Nitrate Negative (NEGATIVE) 03/19/18 13:26 Urine Bilirubin Negative (NEGATIVE) 03/19/18 13:26 Urine Urobilinogen 0.2 E.U./dL (<1 E.U./dL) 03/19/18 13:26 Ur Leukocyte Esterase Negative [place]/uL (NEGATIVE) 03/19/18 13:26 Urine RBC 25 - 30 /hpf (0-2) 03/19/18 13:26 Urine WBC 0 - 2 /hpf (0-6) 03/19/18 13:26 - Hospital Course Hospital Course: History of Present Illness: Patient is an 78 year old female with past medical history of COPD, previous episode of nephrolithiasis, and s/p whipple procedure in 2012 for history of pancreatic cysts/tumors(non malignant) who presented to [facility] ED complaining of left sided flank pain. Patient indicated she had been experiencing left sided flank pain for the past week with progression of her symptoms over the past day or two. She indicates that this AM around 1 AM she began to experience vomiting and nausea. She also reported hives and chills. She tried to take Tylenol for her pain without resolution of symptoms. Patient indicated that she was previously worked up for this discomfort with renal ultrasound with her PMD Dr. Knight. Patient was instructed to follow up with Urologist Dr. Campuzano. Patient indicates she had appointment with him next week. Patient also indicated headaches ,dry mouth associated with symbicort. Patient denied chest pain, shortness of breath, abdominal pain, dysuria, hematuria, weakness, numbness, focal deficit. 12 point ROS benign other than mentioned in HPI. Hospital Course: Patient was admitted for Nephrolithiasis. CT abd/pelvis showed 5 mm obstructive calculi distal left ureter, 15 mm non obstructing calculus right renal pelvis, 10 mm non obstructive calculus left lower pole, small left upper pole renal calculi, moderate left hydronephrosis and hydroureter with periureteral fat infiltration. Urology was consulted. Patient was started on Flomax and pain control. Patient was made NPO and was taken to the OR for cystocsopy, left retrograde pyelogram, dilatation of ureteral stricture, left ureteroscopy, laser lithotripsy of left ureteral calculi, basket evacuation of left renal calculi and placement of left ureteral stent. Patient tolerated the procedure well. Post-procedure, patient was noted to have elevated BPs which have since normalized. On day of discharge patient was doing well. Ambulating and tolerated diet. Pain is controlled. Leukocytosis on admission was likely reactive. Urine cultures and blood cultures were negative, patient has been afebrile. Per Urology, will stop Flomax as the patient passed the stone. Patient to follow up with PMD, Dr Joe and Urology, Dr Campuzano within 1 week. Discharge Medications: Levaquin 750mg PO daily x 7 days Discharge Exam - Head Exam Head Exam: ATRAUMATIC, NORMAL INSPECTION, NORMOCEPHALIC - Eye Exam Eye Exam: EOMI, Normal appearance Pupil Exam: NORMAL ACCOMODATION - ENT Exam ENT Exam: Mucous Membranes Moist - Neck Exam Neck exam: Full Rom - Respiratory Exam Respiratory Exam: Clear to PA & Lateral, NORMAL BREATHING PATTERN, UNREMARKABLE. absent: Rales, Rhonchi, Wheezes - Cardiovascular Exam Cardiovascular Exam: REGULAR RHYTHM, +S1, +S2 - GI/Abdominal Exam GI & Abdominal Exam: Normal Bowel Sounds, Soft, Unremarkable. absent: Rebound, Tenderness - Rectal Exam Rectal Exam: Deferred - Extremities Exam Extremities exam: normal inspection, pedal pulses present - Back Exam Back exam: NORMAL INSPECTION. absent: CVA tenderness (L), CVA tenderness (R) - Neurological Exam Neurological exam: Alert, CN II-XII Intact, Normal Gait, Oriented x3 - Psychiatric Exam Psychiatric exam: Normal Affect, Normal Mood - Skin Skin Exam: Dry, Normal Color, Warm Discharge Plan - Discharge Medications Prescriptions: levoFLOXacin [Levaquin] 750 mg PO DAILY #7 tab - Follow Up Plan Condition: GOOD Disposition: HOME/ ROUTINE Instructions: Kidney Stones in Adults, Ureteroscopy, Ureteral Stent (DC), Laser Lithotripsy for Kidney Stones Additional Instructions: 1. Patient is clear for discharge home 2. Please follow up with Urology, Dr Campuzano and your PMD, Dr Joe within 1 week 3. If having any worsening symptoms, return to nearest ED Referrals: Graeme Campuzano MD [Staff Provider] - Asaf Joe MD [Family Provider] - <Maxwell Munguia - Last Filed: 03/21/18 13:22> Provider - Provider Date of Admission: 03/19/18 15:33 Attending physician: Maxwell Munguia MD Time Spent in preparation of Discharge (in minutes): 35 Hospital Course - Lab Results Lab Results: Most Recent Lab Values WBC 7.3 10^3/ul (4.5-11.0) 03/21/18 06:45 RBC 4.23 10^6/uL (3.5-6.1) 03/21/18 06:45 Hgb 12.4 g/dL (12.0-16.0) 03/21/18 06:45 Hct 37.5 % (36.0-48.0) 03/21/18 06:45 MCV 88.7 fl (80.0-105.0) 03/21/18 06:45 MCH 29.3 pg (25.0-35.0) 03/21/18 06:45 MCHC 33.1 g/dl (31.0-37.0) 03/21/18 06:45 RDW 13.4 % (11.5-14.5) 03/21/18 06:45 Plt Count 210 10^3/uL (120.0-450.0) 03/21/18 06:45 MPV 9.4 fl (7.0-11.0) 03/21/18 06:45 Gran % 70.0 % (50.0-68.0) H 03/21/18 06:45 Lymph % (Auto) 15.8 % (22.0-35.0) L 03/21/18 06:45 [place] % (Auto) 10.8 % (1.0-6.0) H 03/21/18 06:45 Eos % (Auto) 3.3 % (1.5-5.0) 03/21/18 06:45 Baso % (Auto) 0.1 % (0.0-3.0) 03/21/18 06:45 Gran # 5.13 (1.4-6.5) 03/21/18 06:45 Lymph # (Auto) 1.2 (1.2-3.4) 03/21/18 06:45 [place] # (Auto) 0.8 (0.1-0.6) H 03/21/18 06:45 Eos # (Auto) 0.2 (0.0-0.7) 03/21/18 06:45 Baso # (Auto) 0.01 K/mm3 (0.0-2.0) 03/21/18 06:45 Sodium 142 mmol/L (132-148) 03/21/18 06:45 Potassium 3.3 mmol/L (3.6-5.0) L 03/21/18 06:45 Chloride 107 mmol/L (98-107) 03/21/18 06:45 Carbon Dioxide 25 mmol/L (21-33) 03/21/18 06:45 Anion Gap 14 (10-20) 03/21/18 06:45 BUN 11 mg/dL (7-21) 03/21/18 06:45 Creatinine 0.6 mg/dl (0.7-1.2) L 03/21/18 06:45 Est GFR ( Amer) > 60 03/21/18 06:45 Est GFR (Non-Af Amer) > 60 03/21/18 06:45 Random Glucose 100 mg/dL (70-110) 03/21/18 06:45 Calcium 8.7 mg/dL (8.4-10.5) 03/21/18 06:45 Total Bilirubin 0.7 mg/dL (0.2-1.3) 03/21/18 06:45 AST 25 U/L (14-36) 03/21/18 06:45 ALT 26 U/L (7-56) 03/21/18 06:45 Alkaline Phosphatase 96 U/L (38-126) 03/21/18 06:45 Lactate Dehydrogenase 611 U/L (333-699) 03/19/18 11:05 Total Creatine Kinase 51 U/L (35-230) 03/19/18 11:05 Troponin I < 0.01 ng/mL 03/19/18 11:05 Total Protein 6.0 g/dL (5.8-8.3) 03/21/18 06:45 Albumin 3.6 g/dL (3.0-4.8) 03/21/18 06:45 Globulin 2.5 gm/dL 03/21/18 06:45 Albumin/Globulin Ratio 1.4 (1.1-1.8) 03/21/18 06:45 Lipase 14 U/L (23-300) L 03/19/18 11:05 Urine Color Yellow (YELLOW) 03/19/18 13:26 Urine Appearance Turbid (CLEAR) 03/19/18 13:26 Urine pH 7.5 (4.7-8.0) 03/19/18 13:26 Ur Specific [place] 1.015 (1.005-1.035) 03/19/18 13:26 Urine Protein Trace mg/dL (<30 mg/dL) H 03/19/18 13:26 Urine Glucose (UA) Negative mg/dL (NEGATIVE) 03/19/18 13:26 Urine Ketones 15 mg/dL (NEGATIVE) H 03/19/18 13:26 Urine Blood Large (NEGATIVE) H 03/19/18 13:26 Urine Nitrate Negative (NEGATIVE) 03/19/18 13:26 Urine Bilirubin Negative (NEGATIVE) 03/19/18 13:26 Urine Urobilinogen 0.2 E.U./dL (<1 E.U./dL) 03/19/18 13:26 Ur Leukocyte Esterase Negative [place]/uL (NEGATIVE) 03/19/18 13:26 Urine RBC 25 - 30 /hpf (0-2) 03/19/18 13:26 Urine WBC 0 - 2 /hpf (0-6) 03/19/18 13:26 Attending/Attestation - Attestation I have personally seen and examined this patient.: Yes I have fully participated in the care of the patient.: Yes I have reviewed all pertinent clinical information, including history, physical exam and plan: Yes Notes (Text): 03/21/18 13:19 78 year old female with past medical history of COPD, nephrolithias, and pancreatic cysts s/p Whipple procedure who presented with complaint of nausea, vomiting and left flank pain. She was found to have nephrolithiasis with 5 mm obstructive calculi distal left ureter, 15 mm nonobstructing calculus right renal pelvis and 10 mm nonobstructive calculus left lower pole with moderate left hydronephrosis and hydroureter with periureteral fat infiltration. She was started on iv fluids, analgesics, flomax and antiemetics. She was seen by urology and underwent cystoscopy as above. Her symptoms improved. Leukocytosis resolved. Potassium was repleted. Patient is discharged home on antibiotics. Follow up with pmd Dr. Joe. Follow up with urology Dr. Campuzano next week. Maxwell Munguia MD Hospitalist.
[2018-03-21 07:47] LABS: ALB/GLOB RATIO 1.4 (1.1-1.8); ALBUMIN 3.6 g/dL (3.0-4.8); ALT/SGPT 26 U/L (7-56); AST/SGOT 25 U/L (14-36); BLOOD UREA NITROGEN 11 mg/dL (7-21); CALCIUM 8.7 mg/dL (8.4-10.5); GFR AFRICAN-AMERICAN > 60; GFR NON-AFRICAN AMERICAN > 60
[2018-03-21] MEDS ORDERED: Potassium Chloride 20 mEq ER Tab PO ONE (08:04)
[2018-03-21 08:06] VITALS: BP 136/85; PULSE 86; TEMP 98.5; O2SAT 96
--- NOTE | 2018-03-21 08:19 | OP ---
PROCEDURE DATE: 03/20/2018 PREOPERATIVE DIAGNOSES: Left ureteral calculus, renal colic, left hydronephrosis. POSTOPERATIVE DIAGNOSES: Left ureteral calculus, renal colic, left hydronephrosis, plus left ureteral stricture. PROCEDURE: Cystoscopy, left retrograde pyelogram, dilation of left ureteral stricture, left ureteroscopy, laser lithotripsy of left ureteral calculus, basket extraction of left ureteral calculi and placement of a left ureteral stent. ATTENDING SURGEON: Graeme Campuzano MD. ANESTHESIA: General. SPECIMENS: Stone fragments were sent to pathology. DRAINS: A 6 x 24 left ureteral stent. COMPLICATIONS: There were none. OPERATIVE FINDINGS: After informed consent was obtained, the patient was taken to the operating room, placed on the operating table and anesthesia was administered. The patient received IV antibiotics prior to start of the procedure. She was placed in dorsal lithotomy position, and prepped and draped in the usual sterile fashion. On exam, the patient was noted to have atrophic vaginitis, with some linear lacerations on the labia. A 22-Gibraltarian cystoscope was passed under direct vision into the urethral meatus and advanced into the bladder. A full survey inspection of the bladder was then performed which revealed no stones, tumors or foreign bodies of the bladder. Both ureteral orifices were visualized and appeared within normal limits. At this point, a 5-Gibraltarian open-ended ureteral catheter was advanced through the cystoscope and guided into the left ureteral orifice. Left retrograde pyelogram was then performed by instilling contrast through the open-ended catheter into the left ureter during real-time fluoroscopy. In the distal left ureter, there was a calcific density noted. On the retrograde pyelogram, this appeared to be located within the distal ureter, approximately 1 to 2 cm above the left ureteral orifice. There was dilatation of the ureter above this point and moderate hydronephrosis noted. At this point, a sensor wire was obtained. The sensor wire was passed through the ureteral catheter and advanced up the ureter under fluoroscopic guidance until it coiled in the upper collecting system. The ureteral orifice appeared somewhat small in caliber, and at this point, a dual-lumen catheter which goes from 5 to 8-Gibraltarian was obtained. The open end of the dual-lumen catheter was passed over the wire through the scope and into the ureteral orifice. Under direct vision, attempts were made to pass the catheter; however, it was meeting resistance in the distal ureter. At this point, it was removed, the bladder was drained, and the cystoscope was removed. A 8-Gibraltarian semi-rigid ureteroscope was passed under direct vision. It was guided into the ureteral orifice, and inside the orifice approximately 1 cm above, there was noted to be a ragged narrowed area, which appeared to be a ureteral stricture. Multiple attempts were made to bypass this area with the scope; however, it could not be passed and it was removed. The cystoscope was then re-passed and an Amplatz stiff wire was passed under direct vision into the ureter and advanced up the ureter under fluoroscopic guidance. At this point, the cystoscope was removed and again the dual-lumen catheter was now passed over the Amplatz wire. It was able to be passed through the strictured area but not much further than that, it was left in place for possibly 3 minutes and then removed. The cystoscope was then re-passed while back-loading the Amplatz wire. Under direct vision, the Amplatz wire was then withdrawn. The bladder was then again drained and the ureteroscope was then re-passed. At this point, I was able to manipulate the scope through the strictured area which had been dilated, and the scope was advanced into the upper portion of the lower ureter. A large yellow calculus was then encountered. At this point, a holmium laser fiber was obtained and passed through the ureteroscope. Under direct vision, the holmium laser fiber was used to fragment the stone. After the stone was fragmented into small pieces, the ureteroscope was able to be advanced proximally. The mid and upper ureter were dilated. There were no other stones or abnormalities noted. The scope was able to be easily advanced up to the level of the renal pelvis. Under direct vision, the scope was then withdrawn. In the distal ureter, there were multiple small fragments of stones noted. A Zero Tip nitinol basket was then passed, multiple fragments were withdrawn, mostly dragged into the bladder. A few of the small fragments were able to be removed, which were sent to pathology as specimen. On the last pass, there did not appear to be any further remaining stones, and at this point, the ureteroscopic portion of the case was completed. The cystoscope was then re-passed while back-loading the guidewire. The open-ended ureteral catheter was advanced over the wire into the upper ureter and the wire was then removed. The contrast was then placed into the system, which revealed a moderate hydronephrosis, there was no evidence of extravasation. At this point, the sensor wire was re-passed and the open-ended catheter was removed. A 6 x 24 stent was then obtained. It was passed through the cystoscope over the wire and into the left ureter. The stent was advanced proximally under direct and fluoroscopic guidance until it was in at the appropriate position. When the stent was in place, the guidewire was removed. A coil was seen in renal pelvis on fluoroscopy. A coil was seen in the bladder on cystoscopy. At this point, procedure was completed, the bladder was drained, cystoscope was removed. The patient tolerated the procedure well. She was returned to the supine position and taken to the recovery room awake and in stable condition. Graeme Campuzano MD
[2018-03-21] MEDS: Enoxaparin 40 mg Syringe SC SCH (10:41)
== END 2018-03-21 14:43 | disposition home or self-care (01) ==
LOC: ED 10:12 → ERH 15:33 → 5RSO 17:23
PROVIDERS: ADMIT Internal Medicine; ATTEND Internal Medicine
DX: N13.2 Hydronephrosis with renal and ureteral calculous obstruction (principal); N13.1 Hydronephrosis with ureteral stricture, not elsewhere classified; J44.9 Chronic obstructive pulmonary disease, unspecified; N95.2 Postmenopausal atrophic vaginitis; Z87.891 Personal history of nicotine dependence; Z90.411 Acquired partial absence of pancreas
CPT/HCPCS: 36415; 52344; 52356; 71045; 74176; 76000; 80053; 81001; 82550; 83615; 83690; 84484; 85025; 87040; 87086; 88300; 93005; 96361; 96365; 96372; 96375; 96376; 99285; C1758; C1769; C2617; C9113; G0378; J0696; J1170; J1650; J1885; J2405; J2704; J2765; J3010; J7030; J7120; Q9966

== ENCOUNTER 2018-10-08 08:10 | Outpatient (CLI) | payer BC | END 2018-10-08 08:11 | disposition home or self-care (01) | LOC: PAT 08:10 ==

== ENCOUNTER 2018-10-28 08:40 | Day surgery (SDC) | payer BC, MEDICARE ==
[2018-10-28] MEDS ORDERED: cefTRIAXone (Rocephin) 1 gm Inj ONE (12:39)
[2018-10-28] MEDS ORDERED: Iohexol 240 (50 ml) ONE (12:39)
[2018-10-28] MEDS ORDERED: Lidocaine PF 2% (5 ml) Inj (For Cardiac Arrhy) ONE (12:41)
[2018-10-28] MEDS ORDERED: Propofol 10 mg/ml Inj (20 ML) ONE (12:41)
[2018-10-28] MEDS ORDERED: Succinylcholine 200 mg/10 ml Inj IV ONE (13:35)
[2018-10-28] MEDS ORDERED: cefTRIAXone 1 GM in NS 100 ML BAG IVPB ONE (13:45)
[2018-10-28] MEDS ORDERED: Morphine 2 mg/ml ISec IVP PRN (14:44)
[2018-10-28] MEDS ORDERED: Lactated Ringer's 1,000 ML IV SCH (14:45)
[2018-10-28 16:36] VITALS: RESP 18
[2018-10-28 16:39] VITALS: BMI 21.2
[2018-10-28 16:44] VITALS: TEMP 97.9
[2018-10-28 16:50] VITALS: BP 151/84; PULSE 94; O2SAT 95
--- NOTE | 2018-10-29 01:05 | OP ---
PROCEDURE DATE: 10/28/2018 PREOPERATIVE DIAGNOSES: Bilateral renal calculi, left ureteral calculus. POSTOPERATIVE DIAGNOSES: Bilateral renal calculi, left ureteral calculus. PROCEDURES: Cystoscopy, bilateral retrograde pyelograms, left ureteroscopy, laser lithotripsy of left ureteral calculus, basket extraction of left ureteral calculus, insertion of a left ureteral stent. ATTENDING SURGEON: Graeme Campuzano MD ANESTHESIA: General. SPECIMENS: Left ureteral calculi, sent to Pathology. DRAINS: A 6 x 22 left ureteral stent. COMPLICATIONS: There were none. OPERATIVE FINDINGS/DESCRIPTION OF OPERATION: After informed consent was obtained, the patient was taken to operating room, placed on operating table. Anesthesia was administered. The patient was placed in the dorsal lithotomy position and prepped and draped in the usual sterile fashion. On fluoroscopy, a large density was noted in the right upper quadrant in the right renal shadow. There was a large density noted in the left lower quadrant. A 21-Moh[place] cystoscope was passed into the patient's bladder and a full survey inspection was performed. There were no stones, tumors or foreign bodies of the bladder noted. Both ureteral orifices were visualized and appeared within normal limits. At this point, an open-ended ureteral catheter was passed through the cystoscope and guided into the left ureteral orifice. Contrast was then instilled into the system during real-time fluoroscopy. The large density in the left lower quadrant was noted to be within the ureter. The ureter above this was mildly dilated but there was no hydronephrosis or the filling defects noted higher up. At this point, a sensor wire was obtained. It was passed through the open-ended ureteral catheter. It was guided up the ureter under fluoroscopic guidance until it was coiled in the upper collecting system, at which point the catheter was removed. The bladder was then drained and the cystoscope was removed. A 7.5-Mohawk semi-rigid ureteroscope was then passed under direct vision into the bladder and guided under direct vision into the ureteral orifice. Approximately 2 cm above the orifice, a large yellow tanned stone was encountered. At this point, a holmium laser fiber was obtained. It was passed through the ureteroscope and fragmentation of the stone was begun. The stone was hard in nature but was able to be fragmented into multiple pieces; pieces appeared no larger than 3 mm size. At this point, the scope was then advanced more proximally past the stone, it was able to be advanced up the ureter until the level of the renal pelvis was reached. There were no other stones or abnormalities noted. At this point, the scope was withdrawn under direct vision. In the distal ureter, multiple fragments of the stone were remaining in the ureter where there was focal dilation where the stone had been sitting. At this point, a Zero Tip nitinol basket was then passed. The stones were able to be grasped with the basket and removed. The fragments of stone were sent to Pathology as specimen. Multiple passes were made with the ureteroscope and removing fragments of stone. On the last pass, there were no sizable fragments noted. The ureteroscope again was advanced more proximally into the upper ureter and no stone fragments were identified. The ureteroscope was then withdrawn under direct vision and removed from the operative field. At this point, the cystoscope was then re-passed while backloading the guidewire. A 6 x 22 stent was then obtained. Then, it was passed over the guidewire through the cystoscope and into the left ureter. The stent was advanced proximally under direct and fluoroscopic guidance until it was in at the appropriate position. When the stent was in place, the guidewire was removed. A coil was seen in the renal pelvis on fluoroscopy. A coil was seen in the bladder on cystoscopy. String was left in place as the stent will be removed soon. At this point, the open-ended ureteral catheter was re-passed and guided into the right ureteral orifice. Right retrograde pyelogram was then performed by instilling contrast into the right ureter during real-time fluoroscopy. The right ureter appeared within normal limits. In the renal pelvis, there were two large filling defects noted, which correspond to the large renal pelvic calculi. There was no hydronephrosis noted, and the calyces on the right were sharp. On drainage films, there was no evidence of obstruction. At this point, the procedure was completed, the bladder was then drained and the cystoscope was removed. The patient tolerated procedure well. She was taken to the recovery room awake in a stable condition. Graeme Campuzano MD [facility] # [id number]
--- NOTE | 2018-10-29 18:30 | RAD ---
Date of service: 10/28/2018 PROCEDURE: Fluoroscopy up to 1 hr. HISTORY: RETROGRADE PYELOGRAM / LASER LITHOTRIPSY COMPARISON: None TECHNIQUE: Standard protocol for this study/examination. FINDINGS: Total fluoroscopic time (continuous mode) utilized during the procedure 1.5 seconds. Total exam DLP: 16.23 (mGy). IMPRESSION: Less than 1 hr fluoroscopic assistance provided during performance of the procedure.
== END 2018-10-28 17:30 | disposition home or self-care (01) ==
LOC: SDS 08:40
PROVIDERS: ATTEND Urology
DX: N20.2 Calculus of kidney with calculus of ureter (principal); J45.909 Unspecified asthma, uncomplicated; J43.9 Emphysema, unspecified; F17.200 Nicotine dependence, unspecified, uncomplicated; D69.9 Hemorrhagic condition, unspecified; K21.9 Gastro-esophageal reflux disease without esophagitis; I73.9 Peripheral vascular disease, unspecified; E78.5 Hyperlipidemia, unspecified; M25.70 Osteophyte, unspecified joint; E55.9 Vitamin D deficiency, unspecified; M54.9 Dorsalgia, unspecified
CPT/HCPCS: 52356; 88300; C1758; C2625; J0330; J0696; J1100; J2270; J2405; J2704; J3010; J7120 ×2; Q9966

== ENCOUNTER 2019-01-03 09:54 | Day surgery (SDC) | payer BC, MEDICARE ==
[2019-01-03 08:04] VITALS: BMI 21.4
[2019-01-03 10:20] LABS: BASO # 0.18 K/mm3 (0.0-2.0); BASO % 1.5 % (0.0-3.0); EOS # 0.3 (0.0-0.7); EOS % 2.9 % (1.5-5.0); HEMOGLOBIN 13.3 g/dL (12.0-16.0); LYMPH # 1.3 (1.2-3.4); MEAN CELL VOLUME 94.2 fl (80.0-105.0); MEAN CORPUSCULAR HEMOGLOBIN 29.8 pg (25.0-35.0); MEAN CORPUSCULAR HGB CONC 31.7 g/dl (31.0-37.0); MEAN PLATELET VOLUME 9.3 fl (7.0-11.0); MONO # 0.6 (0.1-0.6); MONO % 5.5 % (1.0-6.0); RBC 4.46 10^6/uL (3.5-6.1); RED CELL DISTRIBUTION WIDTH 13.7 % (11.5-14.5); WHITE BLOOD COUNT 11.7 10^3/uL (4.5-11.0)
[2019-01-03 10:28] LABS: PARTIAL THROMBOPLASTIN TIME 32.5 Seconds (26.9-38.3); PROTHROMBIN TIME 11.3 SECONDS (9.4-12.5)
[2019-01-03 10:30] LABS: ALB/GLOB RATIO 1.5 (1.1-1.8); ALBUMIN 4.3 g/dL (3.0-4.8); CALCIUM 9.9 mg/dL (8.4-10.5)
[2019-01-03] MEDS ORDERED: Propofol 10 mg/ml Inj (20 ML) ONE (12:59)
[2019-01-03] MEDS ORDERED: Lidocaine PF 2% (5 ml) Inj (For Cardiac Arrhy) ONE (13:03)
[2019-01-03] MEDS ORDERED: cefTRIAXone 1 GM in NS 100 ML BAG IVPB ONE (13:20)
[2019-01-03] MEDS ORDERED: HYDROmorphone 0.5 mg/0.5 ml ISec IVP PRN (13:48)
[2019-01-03] MEDS ORDERED: Lactated Ringer's 1,000 ML IV SCH (14:00)
--- NOTE | 2019-01-03 14:17 | RAD ---
Date of service: 01/03/2019 PROCEDURE: Retrograde pyelogram HISTORY: RT STENT PLACEMENT COMPARISON: TECHNIQUE: 33.6 sec of fluoro time. Cumulative dose 6.60 mGy. A single image was submitted FINDINGS: The image shows opacification of the right ureter and right renal pelvis which is seen at the level of the upper sacrum. IMPRESSION: As above
[2019-01-03 14:33] VITALS: O2SAT 98
[2019-01-03 14:53] VITALS: RESP 20; TEMP 98.4
[2019-01-03 15:50] VITALS: BP 118/68; PULSE 80
--- NOTE | 2019-01-03 22:37 | CARD ---
APPROVED REPORT Date of service: 01/03/2019 EKG Measurement Heart [id number] <Conclusion> Normal sinus rhythm Low voltage QRS Cannot rule out Anterior infarct, age undetermined Abnormal ECG
--- NOTE | 2019-01-03 23:56 | OP ---
PROCEDURE DATE: 01/03/2019 PREOPERATIVE DIAGNOSES: Right hydronephrosis, right ureteral calculi, renal colic. POSTOPERATIVE DIAGNOSES: Right hydronephrosis, right ureteral calculi, renal colic. PROCEDURES: Cystoscopy, right retrograde pyelogram, insertion of a right ureteral stent. ATTENDING SURGEON: Graeme Campuzano MD ANESTHESIA: General. SPECIMENS: Stones from the bladder were sent for pathology. DRAINS: A 6 x 26 right ureteral stent. COMPLICATIONS: There were none. OPERATIVE FINDINGS: After informed consent was obtained, the patient was taken to the operating room, placed on the operating table. Anesthesia was administered. The patient was placed in dorsal lithotomy position and prepped and draped in usual sterile fashion. IV antibiotics were given prior to start of the procedure. A 22-[place] cystoscope was passed into the patient's bladder and a full survey inspection was performed. There were multiple small calculi noted free floating in the bladder. There were no bladder tumors or other foreign bodies noted. Both ureteral orifices were visualized and appeared within normal limits. At this point, a 5-[place] catheter was introduced through the cystoscope and guided into the right ureteral orifice. When inside the orifice, a right retrograde pyelogram was performed by instilling contrast into the right ureter during real-time fluoroscopy. The right retrograde pyelogram showed few large filling defects in the upper ureter which were mobile and appeared to be calculi. There was [id number] hydronephrosis with marked dilation of the right renal pelvis. There was some tortuosity of the upper ureter. At this point, a sensor wire was obtained. The sensor wire was passed through the open-ended ureteral catheter and advanced up the ureter under direct and fluoroscopic guidance. The wire was able to be manipulated past the stones and was coiled in the upper collecting system. The open-ended ureteral catheter was then removed and a 6 x 26 stent was obtained. It was passed over the wire through the cystoscope and into the right ureter. The stent was then advanced proximally under direct and fluoroscopic guidance until it was in at the appropriate position. When the stent was in place, guidewire was removed. A coil was seen in the upper collecting system on fluoroscopy. A coil was seen in the bladder on cystoscopy. At this point, the procedure was completed. The bladder was drained. The stones were able to be irrigated out of the bladder and sent to pathology as specimen. After bladder was drained, the cystoscope was removed. The procedure was complete. The patient was returned to the supine position and taken to the recovery room awake in stable condition. Graeme Campuzano MD
== END 2019-01-03 15:47 | disposition home or self-care (01) ==
LOC: SDS 09:54
PROVIDERS: ATTEND Urology
DX: N13.2 Hydronephrosis with renal and ureteral calculous obstruction (principal)
CPT/HCPCS: 36415; 52332; 74420; 80053; 85025; 85610; 85730; 88300; 93005; J0696; J1170; J2704; J3010; J7120